=== PATIENT | female | born 1980 | race American Indian/Alaskan Native ===

== ENCOUNTER 2021-02-27 21:51 | Emergency (ER) | payer OTHER ==
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
[2021-02-28 04:02] LABS: Basophils % (Auto) 0.2 % (0.0-1.8); Eosinophils % (Auto) 0.5 % (0.0-4.3); Hematocrit 35.5 % (30.3-42.9); Hemoglobin 11.7 gm/dl (10.1-14.3); Lymphocytes # (Auto) 2.6 K/mm3 (1.2-5.4); Lymphocytes % (Auto) 33.5 % (13.4-35.0); Mean Corpuscular HGB Conc 33 % (30-34); Mean Corpuscular Volume 93 fl (79-97); Monocytes # (Auto) 0.5 K/mm3 (0.0-0.8); Monocytes % (Auto) 6.4 % (0.0-7.3); Platelet Count 292 K/mm3 (140-440); Red Blood Count 3.83 M/mm3 (3.65-5.03)
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
[2021-02-28 04:21] LABS: Blood Urea Nitrogen 4 mg/dL (7-17); Calcium 8.9 mg/dL (8.4-10.2); Hemolysis Index 5
[2021-02-28 04:23] LABS: BUN/Creatinine Ratio 10
[2021-02-28 08:54] VITALS: BP 133/80
== END 2021-02-28 08:30 | disposition home or self-care (01) ==
LOC: ED 21:51
DX: O9A.212 Injury, poisoning and certain other consequences of external causes complicating pregnancy, second trimester (principal); M25.562 Pain in left knee; M54.9 Dorsalgia, unspecified; Z98.890 Other specified postprocedural states; Z98.51 Tubal ligation status; Z3A.20 20 weeks gestation of pregnancy; V49.49XA Driver injured in collision with other motor vehicles in traffic accident, initial encounter; Y92.410 Unspecified street and highway as the place of occurrence of the external cause; Y93.89 Activity, other specified; Y99.8 Other external cause status
CPT/HCPCS: 36415; 76805; 76815; 80048; 84702; 85025